=== PATIENT | female | born 1945 | race Caucasian/White ===

== ENCOUNTER 2018-01-12 10:29 | Day surgery (SDC) | payer MEDICARE, OTHER, SELFPAY ==
--- NOTE | 2018-01-12 07:30 | PM.PREOP ---
Pre-operative Note Interval Note Pre-op Check: Yes History & Physical Reviewed by Physician Changes: No
[2018-01-12 11:07] VITALS: BMI 20.9
[2018-01-12] MEDS: PROPARACAINE 0.5% OPHTH SOL 2 DROPS EYE-OP (11:07)
[2018-01-12 11:23] VITALS: BP 115/53; PULSE 50; RESP 16; TEMP 37.3; O2SAT 100
[2018-01-12] MEDS: CATARACT EYE COMPOUND (10 DROPS/SYRINGE) 3 DROPS EYE-OP (11:24)
--- NOTE | 2018-01-12 13:00 | PM.OP.1 ---
Operative Date/Time/Diagnoses Date of procedure: 01/12/18 Time of procedure: 13:00 Procedure & Clinicians Procedure: Date of service: January 12, 2018 Preoperative diagnoses: 1. Nuclear sclerotic Cataract with advanced cortical changes and poor red reflex. Need for capsular dye. Postoperative diagnoses: 1. Cataract removal with phacoemulsification with placement of posterior chamber intraocular lens implant. Procedure: Complex phacoemulsification with posterior chamber intraocular lens implant and use for capsular dye. Surgeon: Arminda Ramirez MD Complications: None Specimen: None Implant: ZCBOO+19.5 Blood loss: None Anesthesia: Retrobulbar with monitored standby Anesthesiologist: Pradeep Thompson M.D. Description of procedure: Patient is a 72 year old female with decreased vision due to cataract which is affecting activities of daily living. She wants surgery to improve vision. She was taken to the operating room and given IV sedation. A retrobulbar block consisting of 6 cc of 2% xylocaine without epinephrine mixed half and half with 0.5% Marcaine with 1 cc of hyaluronidase added is placed between the medial and lateral 1/3 of the inferior orbital rim. Lid akinesia is obtain with 1% xylocaine with epinephrine infiltrated along the lid margin. The eye is manually massaged for 30 sec, prepped using Betadine solution, and draped in the usual sterile fashion. Temporal approach was made, a 1 mm side-port incision was made at the 12 oclock meridian. Phenylephrine 1.5% mixed with 1% xylocaine 0.2 cc was placed into the anterior chamber. An air bubble was placed followed by a capsular dye to improve visibility due to lack of red reflex. Diffuse cortical shell. Viscoat followed by Healon was then placed. A 2.6 mm clear incision with a 2.6 mm blade was placed at the 3 oclock meridian. Very deep set eye A 360 degree capsulorrhexis style capsulotomy was then performed with a cystitome needle on a Healon greatly aided by the use of the capsular dye Hydrodelineation and hydrodissection were performed. The phacoemulsification unit is introduced, and sculpting notice used to groove the central lens. It is then removed in chopping mode. Epi nucleus is removed with epinuclear mode and irrigation aspiration was used to remove the peripheral cortex. The posterior capsule is polished. The intraocular lens is selected, inspected, power confirmed, and placed in the posterior chamber. The pupil [] constricted. The wound was stromally hydrated and tested for leaks, there was none and was left sutureless. Vigamox 0.1 cc was placed into the anterior chamber. Kenalog 0.2 cc was placed in the superior subconjunctival space. A drop of antibiotic and was placed and the eye was patched and shielded. The patient was stable and returned to the recovery room in excellent condition. Dictated by: Arminda Ramirez MD Copy to: [facility]
[2018-01-12] MEDS: MOXIFLOXACIN OPHTH DROPS 3 ML BOTTLE 2 DROPS INJ (13:24)
[2018-01-12] MEDS: TRIAMCINOLONE 50 MG/5 ML VIAL INJ (13:24)
[2018-01-12] MEDS: PHENYLEPHRINE/LIDOCAINE VIAL (OR) 0.2 ML EYE-OP (13:24)
[2018-01-12] MEDS: LIDOCAINE 1% W/EPI INJ 20 ML INJ (13:25)
[2018-01-12] MEDS: BALANCED SALT IRRIG SOLN NO.2 15 ML IRRIG.SOLN IRR (13:25)
[2018-01-12] MEDS: HYALURONATE SODIUM 10 MG/ML SYRINGE INJ (13:25)
[2018-01-12] MEDS: CARBACHOL 1.5 ML VIAL INJ (13:25)
[2018-01-12] MEDS: CHONDROIDTIN/SOD HYALURONATE 1.05 ML SYRINGE INTRAOCULA (13:25)
[2018-01-12] MEDS: OFLOXACIN 0.3% OPHTH 5 ML 2 DROPS EYE-LEFT (13:26)
[2018-01-12] MEDS: NEOMYCIN/POLY/DEX OPHTH OINT 1 APPLIC EYE-LEFT (13:26)
[2018-01-12] MEDS: LIDOCAINE 2% 4 ML, BUPIVACAINE 0.5% (PF) 4 ML, HYALURONIDASE 150 UNIT INJ (13:27)
[2018-01-12] MEDS: BALANCED SALT IRRIG SOLN NO.2 500 ML, EPINEPHrine 1 MG IRR (13:27)
[2018-01-12] MEDS: TRYPAN BLUE 0.5 ML SYRINGE INJ (13:27)
[2018-01-12 13:54] VITALS: BP 118/52; PULSE 55; RESP 15; TEMP 36.8; O2SAT 100
== END 2018-01-12 14:09 | disposition home or self-care (01) ==
LOC: OR 10:31
PROVIDERS: PCP Family Medicine; Visit Provider Ophthalmology
DX: H25.12 Age-related nuclear cataract, left eye (principal)
CPT/HCPCS: J0171; J2704; J3301; J3470

== ENCOUNTER 2018-01-19 07:38 | Day surgery (SDC) | payer MEDICARE, OTHER, SELFPAY ==
--- NOTE | 2018-01-16 11:22 | PM.PREOP ---
Pre-operative Note Interval Note Pre-op Check: Yes History & Physical Reviewed by Physician Changes: No
--- NOTE | 2018-01-19 08:01 | PM.OP.1 ---
Operative Date/Time/Diagnoses Date of procedure: 01/19/18 Time of procedure: 09:45 Procedure & Clinicians Procedure: Date of service: January 19, 2018 Preoperative diagnoses: 1. Right nuclear sclerotic and cortical cataract without need for capsular dye. Postoperative diagnoses: 1. Cataract surgery with placement of posterior chamber intraocular lens implant. Procedure: Phacoemulsification with posterior chamber intraocular lens implant Surgeon: Arminda Ramirez MD Complications: None Specimen: None Implant:ZCBOO+21.0 Blood loss: None Anesthesia: Retrobulbar with monitored standby Anesthesiologist: Pradeep Thompson M.D. Description of procedure: Patient is a female year old with decreased vision due to cataract which is affecting activities of daily living. She wants surgery to improve vision. She was taken to the operating room and given IV sedation. Very deep set eye A retrobulbar block injection consisting of 6 cc of 2% xylocaine without epinephrine mixed half and half with 0.5% Marcaine with 1 cc of hyaluronidase added is placed between the medial and lateral 1/3 of the inferior orbital rim. Lid akinesia is obtain with 1% xylocaine with epinephrine infiltrated along the lid margin. The eye is manually massaged for 30 sec, prepped using Betadine solution, and draped in the usual sterile fashion. Temporal approach was made, a 1 mm side-port incision was made at the 7:30 position. Phenylephrine 1.5% mixed with 1% xylocaine 0.2 cc was placed into the anterior chamber. Viscoat followed by Bee was then placed. A 2.6 mm clear incision with a 2.6 mm blade was placed at the 170 degree meridian. A 360 degree capsulorrhexis style capsulotomy was then performed with a cystitome needle on a Healon. Hydrodelineation and hydrodissection were performed. The phacoemulsification unit is introduced, and sculpting notice used to groove the central lens. It is then removed in chopping mode. Epi nucleus is removed with epinuclear mode and irrigation aspiration was used to remove the peripheral cortex. The posterior capsule is polished. The intraocular lens is selected, inspected, power confirmed, and placed in the posterior chamber. The pupil was constricted. The wound was stromally hydrated and tested for leaks, there was none and it was left sutureless. Vigamox 0.1 cc was placed into the anterior chamber. Kenalog 0.2 cc was placed in the superior subconjunctival space. A drop of antibiotic and was placed and the eye was patched and shielded. The patient was stable and returned to the recovery room in excellent condition. Dictated by: Arminda Ramirez MD Copy to: [facility] Same procedure as scheduled: Yes
[2018-01-19 08:45] VITALS: BP 100/57; PULSE 50; RESP 15; TEMP 36.2; O2SAT 99; BMI 20.9
[2018-01-19] MEDS: PROPARACAINE 0.5% OPHTH SOL 2 DROPS EYE-OP (08:50)
[2018-01-19] MEDS: CATARACT EYE COMPOUND (10 DROPS/SYRINGE) 3 DROPS EYE-OP ×3 (08:55→09:15)
[2018-01-19] MEDS: LIDOCAINE 2% 4 ML, BUPIVACAINE 0.5% (PF) 4 ML, HYALURONIDASE 150 UNIT INJ (10:06)
[2018-01-19] MEDS: LIDOCAINE 1% W/EPI INJ 20 ML INJ (10:06)
[2018-01-19] MEDS: BALANCED SALT IRRIG SOLN NO.2 15 ML IRRIG.SOLN IRR (10:20)
[2018-01-19] MEDS: CARBACHOL 1.5 ML VIAL INJ (10:25)
[2018-01-19] MEDS: HYALURONATE SODIUM 10 MG/ML SYRINGE INJ (10:26)
[2018-01-19] MEDS: CHONDROIDTIN/SOD HYALURONATE 1.05 ML SYRINGE INTRAOCULA (10:26)
[2018-01-19] MEDS: NEOMYCIN/POLY/DEX OPHTH OINT 1 APPLIC EYE-RIGHT (10:27)
[2018-01-19] MEDS: MOXIFLOXACIN OPHTH DROPS 3 ML BOTTLE 2 DROPS INJ (10:27)
[2018-01-19] MEDS: PHENYLEPHRINE/LIDOCAINE VIAL (OR) 0.2 ML EYE-OP (10:28)
[2018-01-19] MEDS: OFLOXACIN 0.3% OPHTH 5 ML 2 DROPS EYE-RIGHT (10:28)
[2018-01-19] MEDS: TRIAMCINOLONE 50 MG/5 ML VIAL INJ (10:29)
[2018-01-19] MEDS: BALANCED SALT IRRIG SOLN NO.2 500 ML, EPINEPHrine 1 MG IRR (10:29)
[2018-01-19 10:52] VITALS: BP 119/54; PULSE 48; RESP 15; TEMP 36.2; O2SAT 100
== END 2018-01-19 11:10 | disposition home or self-care (01) ==
LOC: OR 07:40
PROVIDERS: PCP Family Medicine; Visit Provider Ophthalmology
DX: H25.11 Age-related nuclear cataract, right eye (principal)
CPT/HCPCS: J0171; J2704; J3301; J3470

== ENCOUNTER → 2018-06-02 14:58 | Outpatient (CLI) | payer MEDICARE, OTHER, SELFPAY ==
--- NOTE | 2018-06-02 | DI.MG.S_ITS ---
BILATERAL DIGITAL SCREENING MAMMOGRAM 3D/2D WITH CAD: 06/02/2018 CLINICAL: Routine screening. Comparison is made to exams dated: 01/26/2017 mammogram, 01/28/2015 mammogram, and 12/20/2012 mammogram - [facility]. There are scattered fibroglandular elements in both breasts. Current study was also evaluated with a Computer Aided Detection (CAD) system. No significant masses, calcifications, or other findings are seen in either breast. There has been no significant interval change. IMPRESSION: NEGATIVE There is no mammographic evidence of malignancy. A 1 year screening mammogram is recommended. This exam was interpreted at Station ID: [id number]. NOTE: For mammograms, a report in lay terms will be sent to the patient. Approximately 15% of breast malignancies will not be visualized mammographically. In the management of a palpable breast mass, a negative mammogram must not discourage biopsy of a clinically suspicious lesion. Electronically Signed By: Hu bruner/chayo:06/02/2018 21:10:17 letter sent: Normal Exam ACR BI-RADS Category 1: Negative [id number]
== END ==
PROVIDERS: PCP Family Medicine; Visit Provider Family Medicine
DX: Z12.31 Encounter for screening mammogram for malignant neoplasm of breast (principal)
CPT/HCPCS: 77063; 77067